=== PATIENT | female | born 1985 ===

== ENCOUNTER 2020-03-19 09:11 | Outpatient (RCR) | payer OTHER, SELFPAY ==
[2020-03-17 17:42] LABS: Hematocrit 35.9 % (37.0-47.0); Hemoglobin 12.4 g/dL (12.0-15.0); Mean Corpuscular HGB Conc 34.5 g/dl (32-36); Mean Corpuscular Hemoglobin 32.6 pg (26-34); Mean Corpuscular Volume 94.5 fl (80-100); Mean Platelet Volume 11.8 fl (7.4-10.4); Platelet Count Result 225 k/mm3 (150-375); Red Cell Distribution Width 14.1 % (11.5-14.5); White Blood Count 7.2 K/mm3 (4.5-10.0)
[2020-03-17 17:56] LABS: Glucose 1 Hour PP 50gm Dose 85 mg/dL
[2020-03-17 18:33] LABS: HIV 1/2 Ab P24 Ag Result Negative (Negative)
[2020-03-19] MEDS: RHO(D) IMMUNE GLOBULIN 300 MCG SYRINGE IM (14:33)
== END 2020-03-19 23:59 | disposition home or self-care (01) ==
LOC: ANHLAB 09:11
PROVIDERS: Visit Provider Obstetrics & Gynecology
DX: Z29.13 Encounter for prophylactic Rho(D) immune globulin (principal); Z11.4 Encounter for screening for human immunodeficiency virus [HIV]; O36.0990 Maternal care for other rhesus isoimmunization, unspecified trimester, not applicable or unspecified; Z3A.00 Weeks of gestation of pregnancy not specified
CPT/HCPCS: 36415; 82947; 85027; 85461; 86703; 86850; 86900; 86901; 90384; 96372; G0432; J2790

== ENCOUNTER 2020-06-17 05:00 | Inpatient (IN) | payer OTHER, SELFPAY ==
[2020-06-17] VITALS (50 sets, daily range): BP systolic 100–140; BP diastolic 42–95; PULSE 64–118; RESP 16; TEMP 36.5–36.8; O2SAT 100; BMI 29.8
--- NOTE | 2020-06-17 05:00 | LDADM ---
This patient, Ashlee Pal, was admitted to Labor/Delivery/Recovery 103 on 06/17/20 at 05:00. Plans for labor, pain management and were discussed with patient. Patient/family oriented to hospital policies and general routines including ID bracelet, bed and alarms, visiting hours, pain management, procedures, bathroom and other care routines, personal items, smoking policy, room service/diet and guest tray routines, infant security routines, and visiting hours. Patient/Family are encouraged to report perceived risks to care and to ask questions if they do not understand what they are told or what they should do. See OBIX for further documentation.
[2020-06-17 06:09] LABS: Basophils Percent Auto 0.4 % (0.2-1.2); Eosinophils Absolute Auto 0.1 K/mm3 (0-0.3); Eosinophils Percent Auto 1.7 % (0-4.4); Hematocrit 38.3 % (37.0-47.0); Hemoglobin 13.1 g/dL (12.0-15.0); Immature Granulocyte Absolute 0.04 K/mm3 (0.00-0.031); Immature Granulocyte Percent A 0.6 % (0-0.5); Lymphocytes Absolute Auto 1.76 K/mm3 (0.9-3.2); Lymphocytes Percent Auto 25.4 % (18.3-44.2); Mean Corpuscular HGB Conc 34.2 g/dl (32-36); Mean Corpuscular Volume 90.8 fl (80-100); Mean Platelet Volume 11.7 fl (7.4-10.4); Monocytes Absolute Auto 0.6 K/mm3 (0.1-0.6); Monocytes Percent Auto 8.5 % (2.6-8.5); Neutrophils Absolute Auto 4.4 K/mm3 (1.3-6.7); Neutrophils Percent Auto 63.4 % (45.5-73.1); Platelet Count Result 181 k/mm3 (150-375); Red Blood Count 4.22 M/mm3 (4.2-5.4); Red Cell Distribution Width 13.6 % (11.5-14.5); White Blood Count 6.9 K/mm3 (4.5-10.0)
[2020-06-17] MEDS: LACTATED RINGERS 1,000 ML 125 ML IV CONT ×2 (06:20→13:58)
[2020-06-17] MEDS: AMPICILLIN 2 GM/NS 100 ML 2 GM/100 ML BAG IVPB (06:20)
[2020-06-17 07:11] LABS: Rapid Plasma Reagin Non-Reactive (NonReactive)
[2020-06-17] MEDS: OXYTOCIN 30 UNITS/NS 500 ML 30 UNITS/500 ML BAG IV CONT (08:24)
[2020-06-17] MEDS: AMPICILLIN 1 GM/NS 50 ML 1 GM/50 ML BAG IVPB ×2 (10:35→14:30)
--- NOTE | 2020-06-17 12:59 | WPDOBADMIT ---
Obstetrics - Admit Note Admission Note: record reviewed. No pertinent additions to the history and/or any subsequent changes in the physical findings that are not consistent with the expected course of the were found. Additions to the history and/or subsequent changes in the physical findings follow. at 41+1 for induction of labor due to postdates. +GBS. Cervix 4/50/-2. AROM with clear fluid. Continue pitocin an antibiotics and anticipate ..
--- NOTE | 2020-06-17 15:28 | P.PCNOB_ITS ---
OB - Delivery Note Procedure events: Labor Induction Induction method: per pitocin protocol Delivery augmentation: rupture of membranes Delivery monitor: external FHT and external uterine Route of delivery: Laceration Description: Perineal - 2nd Degree Delivery repair: vicryl (2-0) Specimen: No Quantitative Blood Loss (ml): 432 Anesthesia type: Local Disposition: floor [place] Baby Date of : 06/17/20 Time of : 14:56 Weeks of gestation at delivery: 41 gender: Female Weight (pounds): 8 Weight (ounces): 4 presentation: vertex position: Right Occiput Anterior Placenta delivery description: Spontaneous cord vessel description: 3 Vessels and Clamped/Cut score one minute: 9 score five minutes: 9
[2020-06-17] MEDS: OXYTOCIN 30 UNITS/NS 500 ML 30 UNITS/500 ML BAG 125 UNITS IV CONT (16:05)
[2020-06-17] MEDS: WITCH HAZEL 40 PADS 1 PAD TOPICAL (17:28)
[2020-06-17] MEDS: BENZOCAINE 20% AER SPR (*SP) 56 GM CAN 1 SPRAY TOPICAL (17:28)
[2020-06-17] MEDS: ACETAMINOPHEN 325 MG TABLET 650 MG PO (19:01)
[2020-06-18] MEDS: ACETAMINOPHEN 325 MG TABLET 650 MG PO (04:42)
[2020-06-18 05:29] LABS: Hemoglobin 10.7 g/dL (12.0-15.0)
[2020-06-18 09:00] VITALS: BP 106/54; PULSE 76; RESP 16; TEMP 36.5; O2SAT 100
[2020-06-18] MEDS: DOCUSATE SODIUM 100 MG CAPSULE PO (10:48)
[2020-06-18] MEDS: MULTIVIT/MIN/PREN/FOL AC/IRON TABLET 1 TAB PO (10:48)
[2020-06-18] MEDS: IBUPROFEN 600 MG TABLET PO (10:48)
--- NOTE | 2020-06-18 10:57 | PM.OBPNVD ---
OB - PN: Subj Subjective Date/time seen: 06/18/20 10:57 Patient comments: no complaints, pain well controlled and other (Lochia similar to menses) [place] baby status: doing well OB - PN: Obj Data Labs CBC & Chem 7: 06/18/20 04:50 Labs: Laboratory Results - last 24 hr 06/18/20 06/18/20 04:50 05:40 Hgb 10.7 L Hct 32.0 L Blood Type O Negative Antibody Screen Negative Screen Negative Baby's Blood Type O pos Baby's LUCIEN Negative Doses of RhIg Required 1 OB - PN A/P Plan day: 1 (s/p vaginal delivery, doing well) Plan: routine care, discharge home and other (Follow up in 4 weeks) Time Spent With Patient Time: Total time spent is greater than 50% in coordination of care (as documented) at patient's floor/unit and/or counseling patient: Time with patient: less than 15 minutes Exam Const: General: no acute distress GI: Inspection: other (Fundus firm and nontender at umbilicus) GI Palp: Yes Soft to palpation and No Tenderness to palpation present (GI) Extrem: General: no edema
--- NOTE | 2020-06-18 10:58 | PM.OBDSVD ---
DS: Admitting Diagnosis Admitting Diagnosis Admitting Diagnosis: Induction of labor DS: Discharge Diagnosis Discharge Diagnosis (1) Encounter for induction of labor: Code(s): Z34.90 - Encounter for supervision of normal , unspecified, unspecified trimester Status: Acute OB - DS: Summary OB Procedures : None OB Procedures Intrapartum: Spontaneous Vag Delivery OB Procedures: : RHo (D) lg Peripartum Data Delivery Method: Natural Vaginal Laceration Description: Perineal - 2nd Degree complications: none Status at Discharge Functional status at discharge: independent ambulation Overall status at discharge: patient is progressing back to baseline Time Spent with Patient Time attestation: Total time spent providing and/or coordinating discharge services: Time spent: Less than 30 minutes DS: Data Data Completed and Pending Labs on day of discharge: Labs from last 24 hours 06/18/20 06/18/20 05:40 04:50 Hgb 10.7 L Hct 32.0 L Blood Type O Negative Antibody Screen Negative Screen Negative Baby's Blood Type O pos Baby's LUCIEN Negative Doses of RhIg Required 1 Discharge Plan Discharge Attending physician on discharge: Linnette Moreno Discharging Clinician: Linnette Moreno Patient Disposition: Home, Self-Care Activity: may shower and pelvic rest Diet: as tolerated Patient Instructions: Antibiotic Form Stand Alone Forms: General Discharge Information Follow-up/Referrals: Linnette Moreno MD [Physician] - 4 Weeks Discharge Medications: Continued calcium carbonate-simethicone 500-20 mg tablet,chewable PO RF: 0 calcium carbonate 500 mg calcium (1,250 mg) tablet,chewable 500 mg PO DAILY RF: 0 prenat.vits,kala,[id number] Tablet 1 tablet PO DAILY RF: 0 Date of admission: 06/17/20 05:00 Primary Care Provider: PHYSICIAN,ELECTRICIAN SUPERVISOR Admitting Provider: Linnette Moreno Attending physician on admission: Linnette Moreno Condition: Stable
[2020-06-18] MEDS: RHO(D) IMMUNE GLOBULIN 300 MCG SYRINGE IM (15:25)
== END 2020-06-18 17:25 | disposition home or self-care (01) | DRG 807 ==
LOC: ANHLDR 05:05 → ANHOB2 17:45
PROVIDERS: Admitting Provider Obstetrics & Gynecology; Visit Provider Obstetrics & Gynecology
DX: O62.3 Precipitate labor (principal); Z37.0 Single live birth; O99.824 Streptococcus B carrier state complicating childbirth; O70.1 Second degree perineal laceration during delivery; O76 Abnormality in fetal heart rate and rhythm complicating labor and delivery; Z3A.41 41 weeks gestation of pregnancy
CPT/HCPCS: 36415; 85014; 85018; 85025; 85461; 86592; 86850; 86900; 86901; 90384; A9270; J0290; J2590; J2790; J7120

== ENCOUNTER → 2021-07-05 15:04 | Outpatient (CLI) | payer OTHER, SELFPAY ==
--- NOTE | ~2021-07-05 | US_ITS ---
EXAMINATION: US OB <=14 wk fetus w TV DATE: 07/05/2021 15:32 INDICATION: Establish dating and viability of during first trimester TECHNIQUE: Real-time pelvic ultrasound utilizing both a transvaginal and transabdominal probe was pe rformed. The interpreting radiologist was not present for the study. COMPARISON: None. FINDINGS: The uterus measures 14.3 x 7.3 x 9.3 cm. There is an intrauterine gestational sac. A yolk sac and fe deni pole are identified. The crown rump length measures 2.5 cm, which correlates with an estimated ge stational age of 9 weeks and 1 days. heart motion is identified measuring 165 beats per minute (bpm) by M-mode Doppler. There are several hypoechoic uterine fibroids, the largest measuring up to 4 .0 cm. The right ovary measures 2.7 x 2.6 x 3.6 cm. The left ovary measures 2.4 x 1.9 x 1.2 cm. There is no free fluid in the pelvis. IMPRESSION: 1. Single living fetus with heart rate of 165 bpm. 2. Gestational age by ultrasound of 9 weeks 1 day(s) +/- 6 day(s) with ultrasound estimated date of delivery (DENI) of 02/06/2022. 3. Fibroid uterus. Reviewed, dictated and finalized at location A. OSCIENCE DIRECTOR NA IMPRESSION: 1. Single living fetus with heart rate of 165 bpm. 2. Gestational age by ultrasound of 9 weeks 1 day(s) +/- 6 day(s) with ultraso und estimated date of delivery (DENI) of 02/06/2022. 3. Fibroid uterus.
== END ==
PROVIDERS: Visit Provider Student in an Organized Health Care Education/Training Program
DX: Z36.89 Encounter for other specified antenatal screening (principal); Z3A.09 9 weeks gestation of pregnancy; D25.9 Leiomyoma of uterus, unspecified
CPT/HCPCS: 76801; 76817

== ENCOUNTER 2021-11-10 14:34 | Outpatient (RCR) | payer OTHER, SELFPAY ==
[2021-11-10 16:22] LABS: Basophils Percent Auto 0.2 % (0.2-1.2); Eosinophils Absolute Auto 0.2 K/mm3 (0-0.3); Eosinophils Percent Auto 1.9 % (0-4.4); Hematocrit 35.7 % (37.0-47.0); Hemoglobin 11.8 g/dL (12.0-15.0); Immature Granulocyte Absolute 0.06 K/mm3 (0.00-0.031); Immature Granulocyte Percent A 0.7 % (0-0.5); Lymphocytes Absolute Auto 1.68 K/mm3 (0.9-3.2); Lymphocytes Percent Auto 20.8 % (18.3-44.2); Mean Corpuscular HGB Conc 33.1 g/dl (32-36); Mean Corpuscular Hemoglobin 31.4 pg (26-34); Mean Corpuscular Volume 94.9 fl (80-100); Mean Platelet Volume 11.9 fl (7.4-10.4); Monocytes Absolute Auto 0.6 K/mm3 (0.1-0.6); Monocytes Percent Auto 7.7 % (2.6-8.5); Neutrophils Absolute Auto 5.6 K/mm3 (1.3-6.7); Neutrophils Percent Auto 68.7 % (45.5-73.1); Platelet Count Result 202 k/mm3 (150-375); Red Blood Count 3.76 M/mm3 (4.2-5.4); White Blood Count 8.1 K/mm3 (4.5-10.0)
[2021-11-10 16:34] LABS: Glucose 1 Hour PP 50gm Dose 90 mg/dL
[2021-11-11] MEDS: RHO(D) IMMUNE GLOBULIN 300 MCG/2 ML SYRINGE IM (10:04)
== END 2022-02-08 23:59 | disposition home or self-care (01) ==
LOC: ANHLAB 14:34
PROVIDERS: Visit Provider Student in an Organized Health Care Education/Training Program
DX: Z29.13 Encounter for prophylactic Rho(D) immune globulin (principal); O36.0190 Maternal care for anti-D [Rh] antibodies, unspecified trimester, not applicable or unspecified; Z3A.00 Weeks of gestation of pregnancy not specified
CPT/HCPCS: 36415; 82947; 85025; 85461; 90384; 96372; J2790

== ENCOUNTER 2022-02-05 12:32 | Outpatient (RCR) | payer OTHER, SELFPAY ==
[2021-11-29 13:48] VITALS: BP 115/60; PULSE 106
[2021-12-14 16:21] VITALS: BP 110/64; PULSE 114
--- NOTE | ~2022-02-05 | US_ITS ---
EXAMINATION: US OB limited DATE: 02/05/2022 14:03 INDICATION: Term . Estimated gestational age of 40 weeks and 0 days. TECHNIQUE: Real-time ultrasound of the pelvis was performed. COMPARISON: Ultrasound 07/05/2021 FINDINGS: There is a single fetus in vertex presentation. The placenta is left posterior. heart rate is 145 beats per minute (bpm). The amniotic fluid index is 18.8 cm, which is normal. IMPRESSION: 1. Single living fetus in vertex presentation. Reviewed, dictated and finalized at location A.
[2022-02-05 13:44] VITALS: BP 112/56; PULSE 96
== END 2022-02-27 23:59 | disposition home or self-care (01) ==
LOC: ANHOBOP 12:32
PROVIDERS: Visit Provider Student in an Organized Health Care Education/Training Program
DX: O36.8130 Decreased fetal movements, third trimester, not applicable or unspecified (principal); Z3A.30 30 weeks gestation of pregnancy; O36.8330 Maternal care for abnormalities of the fetal heart rate or rhythm, third trimester, not applicable or unspecified; Z3A.39 39 weeks gestation of pregnancy
CPT/HCPCS: 59025; 76815

== ENCOUNTER 2022-02-12 16:57 | Inpatient (IN) | payer OTHER, SELFPAY ==
[2022-02-12] VITALS (13 sets, daily range): BP systolic 89–117; BP diastolic 52–78; PULSE 71–95; RESP 16–18; TEMP 36.6–36.8; BMI 30.8
--- NOTE | 2022-02-12 17:47 | LDADM ---
This patient, Ashlee Pal, was admitted to Labor/Delivery/Recovery 107 on 02/12/22 at 16:57. Plans for labor, pain management and were discussed with patient. Patient/family oriented to hospital policies and general routines including ID bracelet, bed and alarms, visiting hours, pain management, procedures, bathroom and other care routines, personal items, smoking policy, room service/diet and guest tray routines, infant security routines, and visiting hours. Patient/Family are encouraged to report perceived risks to care and to ask questions if they do not understand what they are told or what they should do. See OBIX for further documentation.
[2022-02-12 18:17] LABS: Basophils Percent Auto 0.3 % (0.2-1.2); Eosinophils Absolute Auto 0.1 K/mm3 (0-0.3); Eosinophils Percent Auto 1.4 % (0-4.4); Hematocrit 36.1 % (37.0-47.0); Hemoglobin 12.1 g/dL (12.0-15.0); Immature Granulocyte Absolute 0.05 K/mm3 (0.00-0.031); Immature Granulocyte Percent A 0.7 % (0-0.5); Lymphocytes Absolute Auto 1.59 K/mm3 (0.9-3.2); Lymphocytes Percent Auto 22.4 % (18.3-44.2); Mean Corpuscular HGB Conc 33.5 g/dl (32-36); Mean Corpuscular Hemoglobin 31.2 pg (26-34); Mean Platelet Volume 12.2 fl (7.4-10.4); Monocytes Absolute Auto 0.8 K/mm3 (0.1-0.6); Monocytes Percent Auto 11.4 % (2.6-8.5); Neutrophils Absolute Auto 4.5 K/mm3 (1.3-6.7); Neutrophils Percent Auto 63.8 % (45.5-73.1); Platelet Count Result 164 k/mm3 (150-375); Red Blood Count 3.88 M/mm3 (4.2-5.4); Red Cell Distribution Width 15.7 % (11.5-14.5); White Blood Count 7.1 K/mm3 (4.5-10.0)
[2022-02-12] MEDS: DINOPROSTONE 10 MG VAG INSERT VAGINAL (18:35)
[2022-02-13] VITALS (73 sets, daily range): BP systolic 70–160; BP diastolic 44–140; PULSE 59–229; TEMP 36.6–37.3; O2SAT 98–100
[2022-02-13] MEDS: CALCIUM CARBONATE (TUMS) 500 MG (200 MG ELEMENTAL) PO ×2 (01:12→18:48)
--- NOTE | 2022-02-13 02:22 | PM.IMHP ---
H&P: HPI History of Present Illness Date/Time: 02/13/22 02:22 Chief Complaint: Induction of labor Narrative: Patient is a 36-year-old LMP 05/01/2021 currently 41 weeks 1 day gestation with DENI 02/05/2022 who presented to labor and delivery on the evening of 02/12/2022 at 41 weeks gestation for scheduled elective induction of labor. Patient is dated by LMP consistent with ultrasound on 07/05/2021 at 9 weeks gestation. In general, patient doing well. Patient denies any contractions, leakage of fluid, or vaginal bleeding. Reports good movement. Review of Systems Review of Systems: All systems reviewed & are unremarkable except as noted in HPI and below Constitutional: Constitutional: Reports as per HPI and Reports no additional constitutional complaints Eyes: Eyes: Reports as per HPI and Reports no additional eye complaints ENT: Reports system reviewed and no additional complaints, except as documented and Reports as per HPI Cardiovascular: Cardiovascular: Reports as per HPI and Reports no additional cardiovascular complaints Respiratory: Respiratory: Reports as per HPI and Reports no additional respiratory complaints Gastrointestinal: Gastrointestinal: Reports as per HPI and Reports no additional gastrointestinal complaints Genitourinary: Genitourinary: Reports no additional female genitourinary complaints and Reports as per HPI Musculoskeletal: Musculoskeletal: Reports no additional musculoskeletal complaints and Reports as per HPI Integumentary/Breasts: Skin/Breast: Reports system reviewed and no additional complaints, except as docu and Reports as per HPI Neurologic: Reports system reviewed and no additional complaints, except as documented and Reports as per HPI Psychiatric: Psychiatric: Reports no additional psychiatric complaints and Reports as per HPI Endocrine: Endocrine: Reports no additional endocrine complaints and Reports as per HPI Hematologic/Lymphatic: Hematologic/Lymphatic: Reports no additional hematologic/lymphatic complaints and Reports as per HPI Allergic/Immunologic: Allergic/Immunologic: Reports no additional allergic/immunologic complaints and Reports as per HPI PMFSH Past Medical History Medical History Acid reflux Anemia Uterine fibroid Vaginal delivery x2 Surgical History Surgical History [place] teeth extracted Family History Family History Other Diabetes mellitus uncle Breast cancer aunt Grandparent Diabetes mellitus grandfather Hypertension grandmother Cerebrovascular accident grandfather Father Hypertension Atrial fibrillation Social History Social History Smoking status: Never smoker Second hand tobacco smoke exposure: No Alcohol intake: former Substance use: never Gender identity (if verbalized by the patient): Female Spiritual care concerns: No Meds Home Medications and Allergies Home Medications Medication Instructions Recorded Confirmed Type prenat.vits,kala,jmd-fgsu-uauox 1 tablet PO DAILY 12/31/19 02/12/22 History cholecalciferol (vitamin D3) 125 125 mcg PO DAILY 08/25/21 02/12/22 History mcg (5,000 unit) capsule ferrous sulfate 325 mg (65 mg 325 mg PO DAILY 01/07/22 02/12/22 History iron) tablet (Iron (ferrous sulfate)) Allergies Allergy/AdvReac Type Severity Reaction Status Date / Time No Known Allergies Allergy Verified 02/08/22 14:07 Vital Signs Vital Signs - 24 hr 02/12/22 17:30 02/12/22 18:01 02/12/22 18:30 Temperature Pulse Rate 95 88 71 Respiratory Rate Blood Pressure 115/78 89/59 L 111/67 Oxygen Delivery 02/12/22 19:01 02/12/22 19:31 02/12/22 18:35 Temperature 36.7 C Pulse Rate 75 87 Respiratory Rate 18 Blood Pressure 1
--- NOTE | 2022-02-13 02:35 | WPDHPUPDATE1 ---
History and Physical Update Update Date/Time: 02/13/22 02:35 History and Physical has been reviewed, including an updated exam of the patient. There are NO changes in the patient's condition. Risks, benefits, and alternatives have been discussed and questions answered. Patient agrees to proceed with procedure.
[2022-02-13] MEDS: FAMOTIDINE 20 MG/2 ML VIAL IV PUSH (04:05)
[2022-02-13] MEDS: LACTATED RINGERS 1,000 ML 125 ML IV CONT ×2 (07:49→21:31)
[2022-02-13] MEDS: OXYTOCIN 30 UNITS/NS 500 ML 30 UNITS/500 ML BAG IV CONT ×2 (07:50→23:11)
[2022-02-13 07:53] LABS: Rapid Plasma Reagin Non-Reactive (NonReactive)
--- NOTE | 2022-02-13 09:29 | P.PNOB_ITS ---
Pain Control Date/time seen: 02/13/22 09:29 Patient doing well. s/p cervidil. Currently on pitocin. States is starting to feel contractions. Limited bedside sono performed confirming slightly oblique presentation with head to maternal left side. EFM category 1. [place] shows ctx q4-5 mins. Continue pitocin.
--- NOTE | 2022-02-13 16:55 | P.PNOB_ITS ---
Pain Control Date/time seen: 02/13/22 16:55 Patient doing well. SVE /-3. AROM, clear fluid. EFM category 1. [place] shows contractions q3 mins. Continue pitocin.
--- NOTE | 2022-02-13 16:55 | PM.OBPNLAB ---
Pain Control Date/time seen: 02/13/22 16:55 Patient doing well. SVE /-3. AROM, clear fluid. EFM category 1. [place] shows contractions q3 mins. Continue pitocin.
[2022-02-13] MEDS: FAMOTIDINE 20 MG TABLET PO (19:12)
--- NOTE | 2022-02-13 19:24 | P.PNAN_ITS ---
Anes - Eval Pre Procedure Procedure: labor epidural Date/Time: 02/13/22 19:24 Preop Diagnosis: pain during labor Pre Op Diagnosis: IOL Patient Data Age: 36 Gender: F Height: 1.73 m Weight: 92 kg Last Vital Signs Temp 36.6 C 02/13/22 17:30 Pulse 84 02/13/22 19:00 Resp 18 02/12/22 20:30 BP 114/77 02/13/22 19:00 O2 Del Method Room Air 02/12/22 17:42 Allergies Allergy/AdvReac Type Severity Reaction Status Date / Time No Known Allergies Allergy Verified 02/08/22 14:07 Home Medications Medication Instructions Recorded Confirmed Type prenat.vits,kala,mss-ihyo-ujhrz 1 tablet PO DAILY 12/31/19 02/12/22 History cholecalciferol (vitamin D3) 125 125 mcg PO DAILY 08/25/21 02/12/22 History mcg (5,000 unit) capsule ferrous sulfate 325 mg (65 mg 325 mg PO DAILY 01/07/22 02/12/22 History iron) tablet (Iron (ferrous sulfate)) Laboratory Tests 02/12/22 02/12/22 18:02 18:02 RPR Non-reactive (NonReactive) Blood Type O Negative Antibody Screen Negative Patient hx anesthesia problems: none Family hx anesthesia problems: none Results Review: All pre-operative results and documents have been reviewed as part of the pre- operative evaluation. PMFSH Past Medical History Medical History Acid reflux Anemia Uterine fibroid Vaginal delivery x2 Surgical History Surgical History [place] teeth extracted Family History Family History Other Diabetes mellitus uncle Breast cancer aunt Grandparent Diabetes mellitus grandfather Hypertension grandmother Cerebrovascular accident grandfather Father Hypertension Atrial fibrillation Social History Social History Smoking status: Never smoker Second hand tobacco smoke exposure: No Alcohol intake: former Substance use: never Gender identity (if verbalized by the patient): Female Spiritual care concerns: No Exam Day of Procedure 02/13/22 19:24
[2022-02-13] MEDS: ONDANSETRON INJ 4 MG/2 ML VIAL IV PUSH (19:51)
--- NOTE | 2022-02-13 22:48 | PM.OBPRVD ---
OB - Delivery Note Procedure Delivery date: 02/13/22 Procedure: Patient is a 36-year-old now who presented to labor and delivery on the evening of 02/12/2022 at 41 weeks gestation for scheduled induction of labor. Initial cervical exam was approximately fingertip dilated. Induction of labor was started with Cervidil. Cervidil remained in place for approximately 12 hours. Cervidil was removed and Pitocin was started for labor augmentation. Patient made slow, however, progressive cervical change. Artificial rupture of membranes was performed at 4:42 p.m. Clear amniotic fluid was noted. Pitocin was continued and patient continued to make cervical change. Patient became uncomfortable and requested an epidural for pain management which was placed without difficulty. Patient progressed to fully dilated at 10:20 p.m. Patient was encouraged to push and found to be pushing well. Patient was prepped draped for delivery. At 10:30 p.m., patient delivered head atraumatically and without difficulty in LAURI presentation. Occiput restituted to direct occiput posterior. A tight nuchal cord was noted and unable to be reduced. With subsequent push, the 's neck, shoulders, and rest of body delivered without difficulty. Nuchal cord was reduced. was crying spontaneously. 's nose and mouth were suctioned with bulb suction and was placed on maternal abdomen where care was assumed by awaiting nursing staff. Terminal meconium was noted. Delayed cord clamping was performed for approximately 60 seconds. The cord was clamped and cut. A segment of cord was collected for cord gases. Cord blood was collected. The placenta was delivered spontaneously and intact. Uterine fundus was noted to be firm with massage. On inspection, no lacerations were noted. Estimated blood loss for entire delivery was 100 cc. was live born female , Apgars 8 and 9, weighing 8 lbs. 4 oz. Both mother and baby doing well at end of delivery. Events: Elective Induction of Labor Induction method: Per Cervidil Protocol Delivery augmentation: Rupture of Membranes and Pitocin Delivery monitor: External FHT and External Uterine Route of delivery: Laceration Description: None Specimen: Yes (cord blood and cord gases) Quantitative Blood Loss (ml): 100 Anesthesia type: Epidural Disposition: Floor Complications: No immediate complications [place] Baby Date of : 02/13/22 Time of : 22:30 Weeks of gestation at delivery: 41 (41.1) Infant gender: Female Weight (pounds): 8 Weight (ounces): 4 presentation: vertex position: Left Occiput Anterior Placenta delivery description: Spontaneous Cord Vessel Description: 3 Vessels, Nuchal Cord (x1) and Delayed Cord Clamping (x60s) score one minute: 8 score five minutes: 9 AMG Delivery Billing Delivery Delivery: Delivery Charge
[2022-02-14] VITALS (7 sets, daily range): BP systolic 100–127; BP diastolic 46–77; PULSE 63–97; RESP 16–18; TEMP 36.3–36.7; O2SAT 100
[2022-02-14] MEDS: WITCH HAZEL 40 PADS 1 PAD TOPICAL (02:25)
[2022-02-14 06:19] LABS: Hematocrit 37.4 % (37.0-47.0); Hemoglobin 12.4 g/dL (12.0-15.0)
[2022-02-14] MEDS: MULTIVIT/MIN/PREN/FOL AC/IRON TABLET 1 TAB PO (09:30)
[2022-02-14] MEDS: DOCUSATE SODIUM 100 MG CAPSULE PO (09:30)
--- NOTE | 2022-02-14 10:22 | WPDANLDPN2 ---
Anes-Prog Note L&D Date/Time: 02/14/22 10:22 Comfortable throughout: labor and delivery Neuraxial method: epidural Epidural/Spinal procedure site: clean & non-tender Neuro status: Neuro function grossly intact. Cardiovascular status: normal Respiratory status: normal Airway patency: baseline Mental status: baseline Post-Op hydration status: normal Vital Signs: Last Vital Signs Temp 36.3 C L 02/14/22 07:40 Pulse 69 02/14/22 07:40 Resp 18 02/14/22 07:40 BP 100/56 L 02/14/22 07:40 Pulse Ox 100 02/14/22 07:40 O2 Del Method Room Air 02/12/22 17:42 Pain score (VAS): 2 I/O: Intake & Output 02/13/22 02/14/22 02/14/22 23:59 07:59 15:59 Intake Total 500 Output Total 700 100 Balance -200 -100 Patient feedback: Patient satisfied with anesthetic care.
--- NOTE | 2022-02-14 12:24 | PM.OBPNVD ---
OB - PN: Subj Subjective Date/time seen: 02/14/22 12:24 Patient comments: pain well controlled and tolerating diet [place] baby status: doing well and nursing well [place] feeding status: exclusively breast feeding OB - PN: Obj Data Labs CBC & Chem 7: 02/14/22 05:52 Labs: Laboratory Results - last 24 hr 02/14/22 05:52 Hgb 12.4 Hct 37.4 OB - PN A/P Plan day: 1 Plan: routine care Comments: Patient doing well. Continue routine care. Time Spent With Patient Time: Total time spent is greater than 50% in coordination of care (as documented) at patient's floor/unit and/or counseling patient: Exam Psych: Affect: normal affect Other: Abd: fundus firm below umbilicus, nontender Perineum: healing Ext: nontender
--- NOTE | 2022-02-14 14:49 | PC.NURSE ---
[id number] Introductions were made, then consulted with patient to assess needs related to . Mother led the conversation with her?plans to feed?her infant, the?experience so far and discussed her history. Resources provided for inpatient and outpatient services using a resource guide and mom/baby guide. Mother voiced understanding of information and requests assistance with this feeding. Mother mentioned she has a slacker boob that she believes makes less milk and her prefers the right breast. Mother starts her feedings offering the left (non-preferred breast) first. Mother works well with her infant. Mother is understanding of the benefits of skin to skin (unwrapping and placing vertically on her chest), responsive feeding and how to watch for early feeding signs, frequency of feeding on demand about every 8-12 times in 24 hours (every 2-3 hours), milk production, duration of feeding, signs of adequate intake/output and how to record on the feeding sheet. Mother latched infant using a cradle position with infants body dangling and arm crossing the chest. Latch is less than 90 degrees, detached, nipple is misshaped, then RN suggested positioning and ear, shoulder, hip alignment, supporting the breast, asymmetrical latch (off-center), and leading with the chin with a big open side gape. latched to the left breast in cross cradle position. is not demonstrating rocking motion or signs of swallowing. Education given to mother of how to visualize suck/swallow ratios and listening for drinking at the breast. was able to maintain latch without discomfort to mother. Mother detached infant to reposition on the right breast to assess for swallowing. Infant is gaggy and spitty . Encouraged upright skin to skin between attempts at the breast. Nipple care reviewed with optimal latch and good positioning. Mother latched her infant using cross cradle positioning. Mother was encouraged to wait and latch with a big, wide, open gape to protect the nipple. RN suggested practicing football positioning and changing positions while was learning to latch optimally. Discussed the difference between piston and rocking motion of . Mother continued the conversation with her experience and plan to feed her so far and her ability to independently latch infant optimally without discomfort. Mother is feeding appropriately for growth of and understands stimulating to eat if needed. meets the outcomes for weight, output and jaundice at this time. Mother states she is confident to continue effectively her at home or when to call for assistance and denies any additional assistance or education at this time. Reinforced understanding of milk production, transition of milk, signs of adequate intake, prevention/relief of engorgement, responsive after visualizing feeding cues, the different methods of stimulating to breastfeed 2-3 hours after the start of the last feeding, community resources, medication information reviewed per [employer] and when to call a provider using the resource of the mom and baby guide/[facility] website. Mother voiced understanding of the education shared. Reported to the primary RN.
--- NOTE | 2022-02-14 18:43 | PM.OBPNVD ---
OB - PN: Subj Subjective Date/time seen: 02/14/22 18:43 Patient strongly requesting discharge home this evening. will be 24 hours at 10:30 p.m. Pending clearance, will dc home. Emergency precautions reviewed. f/u in office in 4-6 weeks or sooner if necessary. OB - PN: Obj Data Labs CBC & Chem 7: 02/14/22 05:52 Labs: Laboratory Results - last 24 hr 02/14/22 05:52 Hgb 12.4 Hct 37.4 OB - PN A/P Time Spent With Patient Time: Total time spent is greater than 50% in coordination of care (as documented) at patient's floor/unit and/or counseling patient:
--- NOTE | 2022-02-14 18:46 | PM.OBDSVD ---
DS: Admitting Diagnosis Discharge Date 02/14/22 Admitting Diagnosis IUP at 41w gestation Elective induction of labor DS: Discharge Diagnosis Discharge Diagnosis (1) Normal spontaneous vaginal delivery: Code(s): O80 - Encounter for full-term uncomplicated delivery Status: Acute OB - DS: Summary OB Procedures : None OB Procedures Intrapartum: Spontaneous Vag Delivery OB Procedures: : None Time Spent with Patient Time attestation: Total time spent providing and/or coordinating discharge services: DS: Data Data Completed and Pending Labs on day of discharge: Labs from last 24 hours 02/14/22 05:52 Hgb 12.4 Hct 37.4 Discharge Plan Discharge Attending physician on discharge: Janeen Thompson Discharging Clinician: Janeen Thompson Anticipated Discharge Date/Time: 02/14/22 22:30 Patient Disposition: Home, Self-Care Activity: as tolerated, pelvic rest and other - see discharge instructions Diet: regular Discharge Instructions: Call office ([phone]) to schedule a visit in 4-6 weeks. You may take Ibuprofen 600mg every 6 hours as needed for pain. Pain medication may make you constipated. It may be helpful to take an [id number] stool softener, such as Colace and/or Senokot, along with the pain medication to help lessen constipation. Call office or go to ED for pain not controlled with medication, headache, chest pain, shortness of breath, fever, chills, persistent nausea or vomiting, severe abdominal pain, heavy vaginal bleeding >2 pads/hour, foul vaginal discharge or odor, or problems with your breasts. Patient Instructions: Antibiotic Form Stand Alone Forms: General Discharge Information Follow-up/Referrals: Janeen Thompson MD [Physician] - Discharge Medications: Continued prenat.vits,kala,xod-gamd-rexyh Tablet 1 tablet PO DAILY Discontinued cholecalciferol (vitamin D3) 125 mcg (5,000 unit) capsule 125 mcg PO DAILY ferrous sulfate [Iron (ferrous sulfate)] 325 mg (65 mg iron) Tablet 325 mg PO DAILY Date of admission: 02/12/22 16:57 Primary Care Provider: UNKNOWN,DOCTOR Admitting Provider: Janeen Thompson Attending physician on admission: Janeen Thompson Condition: Stable
== END 2022-02-14 23:30 | disposition home or self-care (01) | DRG 807 ==
LOC: ANHLDR 17:02 → ANHOB2 02-14 01:18
PROVIDERS: Admitting Provider Student in an Organized Health Care Education/Training Program; Visit Provider Student in an Organized Health Care Education/Training Program
DX: O69.1XX0 Labor and delivery complicated by cord around neck, with compression, not applicable or unspecified (principal); Z37.0 Single live birth; O99.02 Anemia complicating childbirth; O76 Abnormality in fetal heart rate and rhythm complicating labor and delivery; Z3A.41 41 weeks gestation of pregnancy
CPT/HCPCS: 36415; 85014; 85018; 85025; 86592; 86850; 86900; 86901; A9270; J2405; J2590; J2795; J7120

== ENCOUNTER → 2022-12-15 14:20 | Outpatient (CLI) | payer OTHER, SELFPAY ==
--- NOTE | ~2022-12-15 | US_ITS ---
US thyroid INDICATION: Nontoxic goiter. TECHNIQUE: Real-time sonographic images of the thyroid gland were obtained. COMPARISON: No prior studies for comparison. FINDINGS: The right thyroid lobe measures 5.8 x 1.6 x 2.1 cm. The left thyroid lobe measures 5.7 x 1 .8 x 2.1 cm. Thyroid gland is heterogeneous. There are multiple cysts of the right lobe, largest dru uring 8 mm. No suspicious solid thyroid masses are identified in the right lobe. There are are multip le masses of the left lobe, largest measuring 1 cm which is mixed solid and cystic, hypoechoic, wider than tall, smoothly marginated with macrocalcifications, TR 4. IMPRESSION: 1. Probable benign bilateral thyroid masses, largest in the left measuring 1 cm, TR 4. These do not meet sonographic criteria for biopsy. Consider follow-up ultrasound in 12 months. Reviewed, dictated and finalized at location A. IMPRESSION: 1. Probable benign bilateral thyroid masses, largest in the left measuring 1 c m, TR 4. These do not meet sonographic criteria for biopsy. Consider follow-up ultrasound in 12 months.
== END ==
PROVIDERS: Visit Provider Registered Nurse
DX: E04.9 Nontoxic goiter, unspecified (principal)
CPT/HCPCS: 76536

== ENCOUNTER → 2023-06-30 07:31 | Outpatient (CLI) | payer OTHER, SELFPAY ==
--- NOTE | ~2023-06-30 | US_ITS ---
Pelvic ultrasound. Clinical History: Fibroids Technique: Realtime transabdominal and transvaginal scanning of the pelvis was performed. Color flow Doppler and Doppler spectral analysis were performed. Findings: The uterus is anteverted. The endometrial stripe has a thickness of 9 mm. Small intramural fibroid on the right side measures 2.4 x 2.2 x 2.5 cm.. Posterior fibroid measures 2.7 x 2.7 x 2.9 c m. Left-sided fibroid measures 3.3 x 3.1 x 3.3 cm. The right ovary measures 2.3 x 2.9 x 2.2 cm. No significant right ovarian or adnexal mass is seen. The left ovary measures 1.6 x 3.0 x 1.9 cm. No significant left ovarian or adnexal mass is seen. There is no evidence of free fluid in the cul de sac. Impression: Uterine fibroids, as detailed above. Reviewed, dictated and finalized at [facility]. 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
== END ==
PROVIDERS: PCP Obstetrics & Gynecology; Visit Provider Obstetrics & Gynecology
DX: D25.1 Intramural leiomyoma of uterus (principal)
CPT/HCPCS: 76830; 76856

== ENCOUNTER → 2023-06-30 07:32 | Outpatient (CLI) | payer OTHER, SELFPAY ==
--- NOTE | ~2023-06-30 | US_ITS ---
Thyroid ultrasound. Clinical History: Multinodular goiter COMPARISON: 12/15/2022 Findings: Real-time sonography of the thyroid gland was performed. The right lobe measures 5.6 x 1.7 x 2.0 cm. The left lobe measures 6.1 x 1.9 x 2.1 cm. The isthmus is 5 mm in AP diameter. There are multiple subcentimeter nodules bilaterally, largest nodule measuring 8 mm, with the largest nodules all appearing cystic in nature. Impression: No overtly suspicious thyroid nodule. Multiple subcentimeter thyroid nodules, most of which are cysti c.. Reviewed, dictated and finalized at location [facility]. [facility] Impression: No overtly suspicious thyroid nodule. Multiple subcentimeter thyroid nodules, m ost of which are cystic..
== END ==
PROVIDERS: PCP Internal Medicine; Visit Provider Internal Medicine
DX: E04.2 Nontoxic multinodular goiter (principal)
CPT/HCPCS: 76536

== ENCOUNTER 2024-05-11 12:03 | Emergency (ER) | payer OTHER, SELFPAY ==
[2024-05-11 12:24] VITALS: BP 109/79; PULSE 91; RESP 16; TEMP 36.6; O2SAT 100
--- NOTE | 2024-05-11 13:14 | ED_ITS ---
HPI - General Adult General Chief complaint: Nausea/Vomiting/Diarrhea Stated complaint: Vomiting Source: patient Mode of arrival: ambulatory Limitations: no limitations History of Present Illness HPI narrative: Patient presents for evaluation nausea and vomiting since 0230 this morning. She has some epigastric cramping just prior to vomiting episodes. She denies abdominal pain otherwise. She has experienced chills. She has not checked her temperature to know if she has experienced a fever. Denies any cough, shortness of breath, diarrhea constipation. She did have a solid bowel movement earlier today. Her and children all have similar symptoms. No recent antibiotic use. No new foods. No out of country travel. No recent alcohol. Related Data Home Medications ?Medication ?Instructions ?Recorded ?Confirmed ?Last Taken ?Type ferrous sulfate 325 mg (65 mg 325 mg PO DAILY 12/11/22 Unknown History iron) tablet (Feosol) esomeprazole magnesium 20 mg 20 mg PO DAILY 02/01/24 02/01/24 Unknown History capsule,delayed release ginkgo biloba 40 mg tablet 40 mg PO DAILY 02/01/24 02/01/24 Unknown History lisdexamfetamine 30 mg capsule 30 mg PO DAILY 02/01/24 02/01/24 Unknown History (Vyvanse) melatonin 5 mg capsule mg PO 02/01/24 02/01/24 Unknown History omega 0-ymf-bgy-fish oil 120 cap PO 02/01/24 02/01/24 Unknown History mg-180 mg-500 mg capsule (Fish Oil) zinc acetate 25 mg (zinc) capsule 25 mg PO DAILY 02/01/24 02/01/24 Unknown History bupropion HCl 150 mg 24 hr tablet, mg PO 05/11/24 Unknown History extended release lisdexamfetamine 40 mg capsule mg 05/11/24 Unknown History (Vyvanse) Allergies Allergy/AdvReac Type Severity Reaction Status Date / Time No Known Allergies Allergy Verified 05/11/24 13:10 Review of Systems Review of Systems: CONSTITUTIONAL: Denies fever, chills, or sweats. EYES: Denies visual changes, redness, or discharge. ENT: Denies rhinorrhea, congestion, sore throat, or otalgia. CARDIOVASCULAR: Denies chest pain, palpitations, or edema. RESPIRATORY: Denies cough or dyspnea. GASTROINTESTINAL: Reports nausea and vomiting. Reports epigastric cramping just prior to vomiting. Denies abdominal pain otherwise. GENITOURINARY: Denies dysuria or hematuria. SKIN: Denies rash or itching. MUSCULOSKELETAL: Denies back pain, joint pain, or myalgia. NEUROLOGIC: Denies headache, numbness, dizziness, or weakness. PSYCHIATRIC: Denies anxiety or depression. [facility] Past Medical History Medical History Uterine fibroid Vaginal delivery x3 Anemia Acid reflux Surgical History Surgical History [place] teeth extracted Family History Family History Other Diabetes mellitus uncle Breast cancer aunt Grandparent Diabetes mellitus grandfather Hypertension grandmother Cerebrovascular accident grandfather Father Hypertension Atrial fibrillation Social History Social History Smoking status: Never smoker Second hand tobacco smoke exposure: No Alcohol intake: former Substance use: never Lack of Transportation: No Lack of Food: Never True Current Housing: I Have Housing Concerned About Future Housing: No Difficulty Paying Gas/Electric Bills: No Difficulty Paying for Meds: No Currently Unemployed: No Education: Master's Degree or Higher Difficulty w/ Childcare or Family Care: YES Gender identity (if verbalized by the patient): Female Spiritual care concerns: No Exam Narrative: GENERAL: Well-appearing, well-nourished, and in no acute distress. HEAD: Normocephalic, atraumatic. EYES: PERRLA and EOMI. ENT: Nares clear, no rhinorrhea or epistaxis. Mucous membranes moist. Oropharynx without tonsillar hypertrophy exudate or other lesions. Bilateral TMs pearly harris nonbulging NECK: Supple. No adenopathy or masses. No carotid bruits or JVD CHEST: Clear to auscultation. No respiratory distress. No wheezes rales or rhonchi HEART: Regular rate and rhythm. No murmur heard. Normal peripheral pulses. ABDOMEN: Soft, nontender, nondistended, normal active bowel sounds. EXTREMITIES: Normal range of motion. No edema. SKIN: Warm, dry, no rash. NEURO: No focal deficits. Alert and oriented x3. PSYCH: Normal mood and affect. Course Course Emergency Course: This is a 39-year-old female who presented for evaluation of nausea and vomiting. Flu and COVID were negative. She has no abdominal tenderness on exam. Given the fact that her family members have similar symptoms this is likely an acute viral illness. She was given Zofran. Her symptoms resolved. She requested discharge orders home. Will DC with Zofran. Increase hydration. Follow up with primary provider. Go to the ER for worsening symptoms. Patient in agreement with plan of care Level of Care: Express Care Visit Vital Signs Vital signs: Vital Signs Temperature 36.6 C 05/11/24 12:24 Pulse Rate 91 05/11/24 12:24 Respiratory Rate 16 05/11/24 12:24 Blood Pressure 109/79 05/11/24 12:24 Pulse Oximetry 100 05/11/24 12:24 Temperature 36.6 C 05/11/24 12:24 Pulse Rate 91 05/11/24 12:24 Respiratory Rate 16 05/11/24 12:24 Blood Pressure 109/79 05/11/24 12:24 Pulse Oximetry 100 05/11/24 12:24 Medical Decision Making Vital Signs Vital Signs: Vital Signs Temperature 36.6 C 05/11/24 12:24 Pulse Rate 91 05/11/24 12:24 Respiratory Rate 16 05/11/24 12:24 Blood Pressure 109/79 05/11/24 12:24 Pulse Oximetry 100 05/11/24 12:24 Temperature 36.6 C 05/11/24 12:24 Pulse Rate 91 05/11/24 12:24 Respiratory Rate 16 05/11/24 12:24 Blood Pressure 109/79 05/11/24 12:24 Pulse Oximetry 100 05/11/24 12:24 Lab Data Labs: Lab Results 05/11/24 Range/Units 13:31 POC Influenza A Ag Negative (Negative) POC Influenza B Ag Negative (Negative) POC SARS CoV-2 Ag Negative (Negative) Discharge Plan Discharge Clinical Impression: Acute viral syndrome Patient Disposition: Home, Self-Care Condition: Stable Instructions: Antibiotic Form, Viral Syndrome (ED) Patient Language: Iraqi Prescriptions: New ondansetron 4 mg tablet,disintegrating 4 mg PO Q8H PRN (Reason: nausea and vomiting) Qty: 15 0RF No Action bupropion HCl 150 mg tablet extended release 24 hr PO lisdexamfetamine [Vyvanse] 40 mg capsule ferrous sulfate [Feosol] 325 mg (65 mg iron) tablet 325 mg PO DAILY zinc acetate 25 mg (zinc) capsule 25 mg PO DAILY ginkgo biloba 40 mg tablet 40 mg PO DAILY Rx Instructions: give with meal/snack Fish Oil 120-180-500 mg capsule PO esomeprazole magnesium 20 mg capsule,delayed release(DR/EC) 20 mg PO DAILY melatonin 5 mg capsule PO lisdexamfetamine [Vyvanse] 30 mg capsule 30 mg PO DAILY Follow-up/Referrals: Miguel Angel Alas MD [Physician] - Time of Disposition: 13:51
[2024-05-11] MEDS: ONDANSETRON HCL ODT 4 MG TABLET PO (13:20)
[2024-05-11 13:33] LABS: EDCOVIDSCREEN Negative (Negative); EDINFLUASCREEN Negative (Negative); EDINFLUBSCREEN Negative (Negative)
== END 2024-05-11 13:54 | disposition home or self-care (01) ==
PROVIDERS: Emergency Provider Nurse Practitioner
DX: B34.9 Viral infection, unspecified (principal); Z20.822 Contact with and (suspected) exposure to COVID-19; K21.9 Gastro-esophageal reflux disease without esophagitis
CPT/HCPCS: 87426; 87804; 99213; A9270; G0463